=== PATIENT | male | born 1950 | race Caucasian/White ===

== ENCOUNTER 2017-09-14 04:48 | Inpatient (IN) ==
[2017-09-09 15:28] LABS: Basophils # (Auto) 0 K/mcL (0.0-0.3); Basophils % (Auto) 0.4 % (0.0-2.0); Eosinophils # (Auto) 0.2 K/mcL (0.0-0.7); Eosinophils % (Auto) 2.5 % (0.0-7.0); Granulocytes % (Auto) 55.4 % (38.0-78.0); Lymphocytes # (Auto) 3.2 K/mcL (1.5-4.8); Lymphocytes % (Auto) 33.3 % (15.5-49.0); Mean Cell Volume 93.8 fL (80.0-100.0); Mean Corpuscular HGB Conc 33.4 g/dL (31.0-36.0); Mean Corpuscular Hemoglobin 31.3 pg (26.0-34.0); Monocytes # (Auto) 0.8 K/mcL (0.1-0.9); Monocytes % (Auto) 8.4 % (1.0-12.0); Platelet Count 151 K/mcL (140-440); RBC 4.98 M/mcL (4.50-5.90)
[2017-09-09 15:39] LABS: Appearance,Urine CLEAR; Bilirubin,Urine NEG (NEG); Color,Urine YELLOW; Glucose,Urine (UA) NEGATIVE (NEG); Leukocyte Esterase,Urine NEG /uL (NEG); Protein,Urine NEG (NEG); Specific Gravity,Urine 1.023 (1.000-1.035); Urine Blood NEG mg/dL (<0.03); Urobilinogen,Urine NEG (NEG)
[2017-09-09 15:52] LABS: ALT/SGPT 18 U/l (0-40); Albumin 4.5 gm/dL (3.2-5.2); Albumin/Globulin Ratio 1.6 (1.0-2.3); Alkaline Phosphatase 63 U/L (39-117); Blood Urea Nitrogen 19 mg/dl (8-23)
[2017-09-14] MEDS ORDERED: ceFAZolin 1 GM VIAL IV SCH (05:00)
[2017-09-14] MEDS ORDERED: GLYCOPYRROLATE 0.2 MG/ML VIAL IV ONE (07:40)
[2017-09-14] MEDS ORDERED: PROPOFOL 200 MG/20 ML VIAL IV ONE (07:40)
[2017-09-14] MEDS ORDERED: MIDAZOLAM 2 MG/2 ML VIAL IV ONE (07:40)
[2017-09-14] MEDS ORDERED: DEXAMETHASONE 10 MG/ML VIAL IV ONE (07:40)
[2017-09-14] MEDS ORDERED: LIDOCAINE HCL/PF 100 MG/5 ML SYRINGE IV ONE (07:40)
[2017-09-14] MEDS ORDERED: KETAMINE 100 MG/ML ML IV ONE (07:40)
[2017-09-14] MEDS ORDERED: PHENYLEPHRINE 10 MG/ML VIAL IV ONE (07:40)
[2017-09-14] MEDS ORDERED: fentaNYL 100 MCG/2 ML VIAL IV ONE (07:40)
[2017-09-14] MEDS ORDERED: HYDROmorphone 2 MG/ML VIAL IV ONE (07:40)
[2017-09-14] MEDS ORDERED: TRANEXAMIC ACID 1,000 MG/10 ML VIAL IV ONE (07:40)
[2017-09-14] MEDS ORDERED: SUCCINYLCHOLINE 20 MG/ML ML IV ONE (07:40)
[2017-09-14] MEDS ORDERED: ONDANSETRON 4 MG/2 ML VIAL IV ONE (07:40)
[2017-09-14] MEDS ORDERED: THROMBIN (BOVINE) 5,000 UNIT VIAL TOPICAL ONE (08:00)
[2017-09-14] MEDS ORDERED: GUM MASTIC/STORAX/MSAL/ALCOHOL 1 DOSE DROPERETTE TOPICAL ONE (08:47)
[2017-09-14] MEDS ORDERED: GELATIN SPONGE,ABSORBABLE 1 GM POWDER TOPICAL ONE (08:47)
[2017-09-14] MEDS ORDERED: GELATIN SPONGE,ABSORBABLE 1 EACH SPONGE TOPICAL ONE (08:47)
[2017-09-14] MEDS ORDERED: HEPARIN 20,000 UNIT/ML VIAL IR ONE (08:56)
[2017-09-14] MEDS ORDERED: CALCIUM GLUCONATE 4.65 MEQ/10 ML VIAL TOPICAL ONE (09:07)
[2017-09-14] MEDS ORDERED: IPRATROPIUM/ALBUTEROL 3 ML AMPUL.NEB NEB PRN (10:01)
[2017-09-14] MEDS ORDERED: HYDROmorphone 2 MG/ML VIAL IV PRN (10:01)
[2017-09-14] MEDS ORDERED: LACTATED RINGERS 250 ML IV PRN (10:01)
[2017-09-14] MEDS ORDERED: PROMETHAZINE 25 MG/ML VIAL IV PRN (10:01)
[2017-09-14] MEDS ORDERED: NALOXONE HCL 0.4 MG/ML VIAL IV PRN (10:01)
[2017-09-14] MEDS ORDERED: ONDANSETRON 4 MG/2 ML VIAL IV PRN (10:01)
[2017-09-14] MEDS ORDERED: METHOCARBAMOL 1,000 MG/10 ML VIAL IV PRN (10:01)
[2017-09-14] MEDS ORDERED: BENZOCAINE/MENTHOL 1 LOZENGE PO PRN ×2 (10:01→10:46)
[2017-09-14] MEDS ORDERED: ACETAMINOPHEN 1,000 MG/100 ML BOTTLE IV ONE (10:01)
[2017-09-14] MEDS ORDERED: FLUMAZENIL 0.1 MG/ML ML IV PRN (10:01)
[2017-09-14] MEDS ORDERED: LACTATED RINGERS 1,000 ML IV SCH (10:15)
[2017-09-14] MEDS ORDERED: HYDROmorphone PCA 30 MG/30 ML PCA.VIAL IV PRN (10:48)
[2017-09-14] MEDS ORDERED: BUPIVACAINE 0.25% 50 ML VIAL IJ ONE (10:50)
--- NOTE | 2017-09-14 10:53 | Brief Operative Note ---
Date of procedure: 09/14/17 Pre-op diagnosis: spondylolisthesis L5S1 Post-op diagnosis: same Procedure: decompression and fusion Grafts/Implants: Yes (nuvasive) Anesthesia: GETA Complications: none Surgeon: Isaias Grayson Screen Writer: Yessenia Mcdonald Specimens Removed/Pathology: none sent Condition: stable Disposition: PACU
[2017-09-14] MEDS: fentaNYL 100 MCG/2 ML VIAL IV PRN ×2 (12:02→12:04)
--- NOTE | 2017-09-14 12:15 | Operative Note ---
DATE OF OPERATION: 09/14/2017 PREOPERATIVE DIAGNOSIS: Isthmic spondylolisthesis L5-S1. POSTOPERATIVE DIAGNOSIS: Isthmic spondylolisthesis L5-S1. OPERATION PROPOSED: 1. Lumbar decompression via Judge laminectomy with decompression of neural elements. 2. Posterior nonsegmental instrumentation using a [employer] pedicle screw construct. 3. Posterior/posterolateral fusion L5-S1. 4. Application of prosthetic device interbody space and interbody fusion L5-S1. 5. Aspiration of iliac crest for osteoprogenitor cells, bilateral iliac crest. OPERATION PERFORMED: 1. Lumbar decompression via Judge laminectomy with decompression of neural elements. 2. Posterior nonsegmental instrumentation using a [employer] pedicle screw construct. 3. Posterior/posterolateral fusion L5-S1. 4. Application of prosthetic device interbody space and interbody fusion L5-S1. 5. Aspiration of iliac crest for osteoprogenitor cells, bilateral iliac crest. OPERATING SURGEON: Isaias Grayson M.D. SERVICES PROGRAM MANAGER: Yessenia Mcdonald PA-C. INDICATIONS: This is a gentleman who has had debilitating back and radicular pain. He has an isthmic spondylolisthesis with severe foraminal narrowing. We have elected to proceed with a decompression and fusion. OPERATION IN DETAIL: Informed consent was obtained. The patient was taken to the operating room where he was provided appropriate anesthetic and prophylactic antibiotics. He was carefully positioned. His back was prepped sterilely. A midline incision was made. I dissected down to expose spinous process and lamina L4 through S1. I dissected out and around the facet joints to expose the transverse process of L5 and the sacral ala. I placed a marker and a radiograph was obtained to confirm the level of dissection. I then performed the decompression, removing a modest amount of the lamina up through and skeletonizing the pedicle of L5. I did leave some of the bone for our fusion. I worked out the neural foramen, decompressing the foramen, and again debrided through this pars where he had the isthmic defect. I then placed my posterior instrumentation, this being a pedicle screw construct. I advanced the gearshift awl cannulating the pedicle. Each pedicle was then probed with a ball-tip whip. I then tapped and re-probed. An appropriate length pedicle screw was placed L5-S1, both on the right and on the left. Radiographs obtained confirmed the position of the hardware. I then aspirated the iliac crest for osteoprogenitor cells. This was done by advancing a Jamshidi needle into the iliac crest. I aspirated. After every 10 to 15 mL of aspirate, I repositioned the needle. This was done bilaterally. The aspirate was passed to the back table and was spun down for osteoprogenitor cells. I then performed the application of prosthetic device interbody space and interbody fusion. This was done by mobilizing the nerve root towards the midline. I sized the annulus and brought in a variety of dilators. By turning these, I was able to distract across the disc space. Distraction was held with a working malorie. I extensively curetted the disc space. I filled the disc space with morcellized bone graft. I then filled a cage, also from [employer], with morcellized graft. It was then impacted into the site prepared for it. Posterior and posterolateral fusion was then performed. I extensively decorticated the posterolateral aspect of the spine. This being the transverse process, pars interarticularis and sacral ala. I packed morcellized graft into and against the decorticated posterolateral aspect of the spine to allow for fusion. I irrigated thoroughly prior to any bone grafting. The procedure was completed by compressing across the interbody graft. I tightened and torqued the malorie into the top-loading pedicle screw. I closed over a deep drain with an 0 Vicryl in interrupted fashion, 2-0 Vicryl inverted deep dermal and running subcuticular. The procedure was tolerated well. No complications. Estimated blood loss is 200 mL. GDD:chela Job ID: [id number] Doc ID: [id number] Isaias Grayson MD
[2017-09-14] MEDS ORDERED: ONDANSETRON ODT 4 MG TABLET SL PRN (16:17)
[2017-09-14] MEDS: ceFAZolin 1 GM VIAL IV SCH (17:18)
[2017-09-14] MEDS: 0.9 % SODIUM CHLORIDE 1,000 ML IV SCH (17:19)
[2017-09-14] MEDS: metFORMIN 500 MG TAB.XL.24H PO SCH (17:19)
[2017-09-14] MEDS ORDERED: KETOROLAC 30 MG/ML VIAL IV ONE (18:59)
[2017-09-14] MEDS: HYDROmorphone 2 MG/ML VIAL IV PRN ×2 (19:20→21:14)
[2017-09-14] MEDS: HYDROmorphone 2 MG TABLET PO PRN (19:21)
[2017-09-14] MEDS: ATORVASTATIN 20 MG TABLET PO SCH (21:15)
[2017-09-14] MEDS: LISINOPRIL 20 MG TABLET PO SCH (21:15)
[2017-09-15] MEDS: ceFAZolin 1 GM VIAL IV SCH ×3 (00:19→17:03)
[2017-09-15] MEDS: 0.9 % SODIUM CHLORIDE 1,000 ML IV SCH ×3 (02:19→17:04)
[2017-09-15] MEDS: HYDROmorphone 2 MG TABLET PO PRN ×3 (03:21→12:55)
[2017-09-15 06:39] LABS: Blood Urea Nitrogen 21 mg/dl (8-23)
--- NOTE | 2017-09-15 07:26 | Orthopedic Progress Note ---
Subjective Patient information: Note initiated : 09/15/17 at 7:24 am Service Date, if different from initiated Date: [] Patient: Anthony Luke 67 y/o M admitted on 09/14/17 for L5-S1 Lumbar Decompression with Fusion. Chief Complaint: [S/P L5-S1 decompression and fusion] Patient is doing well. His pain is minimal. Ambulation has been limited to this point. Denies any lower extremity weakness/paresthesias. Principal diagnosis: Lumbar stenosis with instability Objective Vital signs: Vital Signs Temp Pulse Resp BP Pulse Ox 09/15/17 04:00 98.3 F 88 16 128/73 95 09/15/17 00:00 98.6 F 75 16 148/78 93 09/14/17 20:00 98.8 F 87 16 145/79 96 09/14/17 15:31 91/56 97 09/14/17 14:31 110/65 96 09/14/17 14:02 120/77 100 09/14/17 13:31 127/82 98 09/14/17 13:16 147/79 97 09/14/17 13:02 135/74 97 09/14/17 12:40 92 09/14/17 12:31 97 09/14/17 12:20 97.0 F 88 12 126/85 92 09/14/17 12:10 97 H 12 126/77 92 09/14/17 11:55 99 H 12 134/81 93 09/14/17 11:40 110 H 12 120/79 93 09/14/17 11:25 90 15 112/63 95 09/14/17 11:12 97.3 F 80 10 L 95/63 96 Intake and Output 09/14/17 09/15/17 09/15/17 21:59 05:59 13:59 Intake Total 355 / 355 1350 / 1350 Output Total 705 / 705 653 / 653 200 / 200 Balance -350 / -350 697 / 697 -200 / -200 Intake: IV 1000 / 1000 Sodium Chloride 0.9% 1,000 ml @ 1000 / 1000 125 mls/hr IV .Q8H [facility] Rx#: [id number] Oral 355 / 355 350 / 350 Output: Drainage Lower Back Void Amount 675 / 675 425 / 425 200 / 200 Emesis 200 / 200 Other: Meal Dinner Percent of Meal Consumed 100% Feeding Ability Independent Weight 296 lb Intake & Output: Intake & Output 09/14/17 09/15/17 09/15/17 21:59 05:59 13:59 Intake Total 355 / 355 1350 / 1350 Output Total 705 / 705 653 / 653 200 / 200 Balance -350 / -350 697 / 697 -200 / -200 Weight 296 lb Intake: IV 1000 / 1000 Sodium Chloride 0.9% 1,000 ml @ 1000 / 1000 125 mls/hr IV .Q8H [facility] Rx#: [id number] Oral 355 / 355 350 / 350 Output: Drainage Lower Back Void Amount 675 / 675 425 / 425 200 / 200 Emesis 200 / 200 Other: Meal Dinner Percent of Meal Consumed 100% Feeding Ability Independent Incision: Yes healing, Yes clean and dry Incision clean and dry: Yes Dressing: Yes clean, Yes dry, Yes intact Weight bearing status: full Neurological exam IM: Yes alert, Yes motor sensory intact, Yes neurovascular intact Extremities exam IM: Yes normal inspection, Yes neurovascular intact - Labs CBC & BMP: 09/15/17 05:00 09/15/17 05:00 Labs: Orthopedic Labs 09/09/17 14:14 PT 13.4 INR 1.0 09/15/17 09/09/17 05:00 14:14 Hgb 12.6 L 15.6 Hct 37.0 L 46.7 Assessment and Plan (1) Lumbar spinal stenosis Ambulate with PT today while wearing brace. May take Robaxin prn and Restoril 15 mg QHS prn insomnia. D/c drain tomorrow prior to discharge. Status: Acute
[2017-09-15] MEDS: amLODIPine 5 MG TABLET PO SCH (08:29)
[2017-09-15] MEDS: ASPIRIN 81 MG TAB.CHEW PO SCH (08:31)
[2017-09-15] MEDS ORDERED: GLUCOSAMINE/CHONDROITIN SULF A 1 CAP CAPSULE PO SCH (09:00)
[2017-09-15] MEDS ORDERED: GLUCOSAMINE SULFATE DIPOT CHLR PO SCH (09:00)
[2017-09-15] MEDS ORDERED: [UNRECOGNIZED DRUG - OTHER] PO SCH (09:00)
[2017-09-15] MEDS: METHOCARBAMOL 750 MG TABLET PO PRN ×2 (09:32→18:08)
[2017-09-15] MEDS: GLUCOSAMINE/CHONDROITIN SULF A 1 CAP CAPSULE PO SCH (11:38)
[2017-09-15] MEDS: HYDROcodone/APAP 10/325MG TABLET PO PRN ×2 (17:03→21:13)
[2017-09-15] MEDS: metFORMIN 500 MG TAB.XL.24H PO SCH (17:03)
[2017-09-15] MEDS: ATORVASTATIN 20 MG TABLET PO SCH (20:16)
[2017-09-15] MEDS: LISINOPRIL 20 MG TABLET PO SCH (20:16)
[2017-09-15] MEDS ORDERED: TEMAZEPAM 15 MG CAPSULE PO PRN (21:00)
[2017-09-16] MEDS: ceFAZolin 1 GM VIAL IV SCH ×2 (00:09→07:51)
[2017-09-16] MEDS ORDERED: 0.9 % SODIUM CHLORIDE 10 ML SYRINGE IV SCH (06:00)
[2017-09-16] MEDS: METHOCARBAMOL 750 MG TABLET PO PRN (07:03)
[2017-09-16] MEDS: ASPIRIN 81 MG TAB.CHEW PO SCH (07:51)
[2017-09-16] MEDS: amLODIPine 5 MG TABLET PO SCH (07:52)
[2017-09-16] MEDS: GLUCOSAMINE/CHONDROITIN SULF A 1 CAP CAPSULE PO SCH (07:52)
== END 2017-09-16 09:50 | disposition home or self-care (01) | DRG 460 ==
LOC: MEDSUR 04:48
PROVIDERS: ADMIT Orthopaedic Surgery Orthopaedic Surgery of the Spine; ATTEND Orthopaedic Surgery Orthopaedic Surgery of the Spine
PROC: LUMDECF (ICD-10-PCS; 2017-09-14 07:37)